=== PATIENT | female | born 1975 | race African-American/Black ===

== ENCOUNTER 2020-05-20 22:28 | Emergency (ER) | payer MEDICAID ==
[~2020-05-20] VITALS: Ht 175.3 cm; Wt 120.2 kg
[2020-05-21 00:23] LABS: MEAN CORPUSCULAR HEMOGLOBIN 28.8 pg (27.0-34.8); MEAN CORPUSCULAR HGB CONC 32.9 g/dL (32.4-35.8); PLATELET COUNT 303 x10^3/uL (130-400); RED BLOOD COUNT 4.28 x10^6/uL (3.82-5.3); RED CELL DISTRIBUTION WIDTH 13.3 % (9.6-15.2)
[2020-05-21 00:36] LABS: ALBUMIN 3.4 g/dL (3.4-5.0); ANION GAP 3 mmol/L (5-15); CALCIUM 8.6 mg/dL (8.5-10.1); CHLORIDE 114 mmol/L (98-107)
[2020-05-21 00:42] LABS: CREATININE 1.16 mg/dL (0.55-1.02)
[2020-05-21] MEDS ORDERED: IBUPROFEN 800 MG TABLET ONE (00:46)
--- NOTE | 2020-05-21 00:50 | NUR ---
PT IN BED WITH NO SIGNS OR SYMPTOMS OF ACUTE DISTRESS NOTED RESPIRATIONS EVEN AND UNLABORED MEDIACTED ORDERED FOR LOW ABD PAIN RATED 5/10. PT ABLE TO TAKE MEDICATION WITHOUT COMPLICATION, RETURNED TO POSITION OF COMFORT. PT VERBALIZES APPREICATION FOR CARES AND CONCERN.
[2020-05-21] MEDS ORDERED: IBUPROFEN 200 MG TABLET PO ONE (01:00)
[2020-05-21 01:23] LABS: MD YES
[2020-05-21 01:26] LABS: EOS#(MANUAL) 0.77 x10^3/uL (0.0-0.4); EOS% (MANUAL) 12 % (1-7); LYMPH#(MANUAL) 2.94 x10^3/uL (1-3.4); LYMPHS% (MANUAL) 46 % (22-44); MONOS#(MANUAL) 0.38 x10^3/uL (0.3-2.7); MONOS% (MANUAL) 6 % (2-9); REACTIVE LYMPHS # (MANUAL) 0.06 x10^3/uL (0-0); REACTIVE LYMPHS % (MANUAL) 1 % (0-0); SEG#(MANUAL) 2.24 x10^3/uL (1.8-6.8); SEGS% (MANUAL) 35 % (42-75)
[2020-05-21 01:27] LABS: <PLATELET ESTIMATE> ADEQUATE; <PLT MORPHOLOGY> NORMAL PLT MORPH; <RBC MORPHOLOGY> NORMAL
[2020-05-21 01:33] LABS: MICROSCOPIC INDICATED
[2020-05-21 02:20] VITALS: BP 155/70
== END 2020-05-21 02:23 | disposition home or self-care (01) ==
LOC: ED 22:56
DX: N93.8 Other specified abnormal uterine and vaginal bleeding (principal); N92.1 Excessive and frequent menstruation with irregular cycle
CPT/HCPCS: 36415; 76830; 80048; 81001; 82040; 84703; 85025; 99284